=== PATIENT | female | born 2000 ===

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

== ENCOUNTER 2021-05-14 11:18 | Outpatient (CLI) | payer OTHER | END 2021-05-14 11:19 | disposition home or self-care (01) | LOC: TRG 11:18 | DX: O26.893 Other specified pregnancy related conditions, third trimester (principal); Z67.11 Type A blood, Rh negative; Z3A.37 37 weeks gestation of pregnancy | CPT/HCPCS: 86850; 86900; 86901; 96372; J2790 ==

== ENCOUNTER 2021-05-20 08:26 | Outpatient (CLI) | payer OTHER ==
[2021-05-20 14:29] VITALS: BP 106/52
== END 2021-05-20 14:50 | disposition home or self-care (01) ==
LOC: LAB 08:26 → APU 13:48 → LAB 14:50
PROVIDERS: ATTEND Obstetrics & Gynecology
DX: O26.893 Other specified pregnancy related conditions, third trimester (principal); Z3A.32 32 weeks gestation of pregnancy; Z67.11 Type A blood, Rh negative
CPT/HCPCS: 86850; 86900; 86901; 96372; J2790

== ENCOUNTER 2021-07-09 14:23 | Inpatient (IN) | payer OTHER ==
[2021-07-09] MEDS ORDERED: ePHEDrine SULFATE 50 MG/1 ML INJ IV PRN (16:25)
[2021-07-09] MEDS ORDERED: miSOPROStol 200 MCG TAB PR PRN (16:25)
[2021-07-09] MEDS ORDERED: LIDOCAINE (2%) 20 MG/1 ML VIAL 20 ML MDV INFILTRATI ONE (16:25)
[2021-07-09] MEDS ORDERED: MINERAL OIL 30 ML ORAL LIQD PO PRN (16:25)
[2021-07-09] MEDS ORDERED: LOPERAMIDE 2 MG CAP PO PRN (16:25)
[2021-07-09] MEDS ORDERED: TERBUTALINE 1 MG/1 ML INJ SUB-Q PRN (16:25)
[2021-07-09] MEDS ORDERED: OXYTOCIN 10 UNIT/1 ML INJ IM PRN (16:25)
[2021-07-09] MEDS ORDERED: METHYLERGONOVINE MALEATE 0.2 MG/ML VIAL IM PRN (16:25)
[2021-07-09] MEDS ORDERED: CARBOPROST TROMETHAMINE 250 MCG/1 ML INJ IM PRN (16:25)
[2021-07-09] MEDS ORDERED: OXYTOCIN DRIP 30 UNITS/500 ML BAG IV SCH ×2 (17:00)
[2021-07-09 17:02] LABS: Hematocrit 36.9 % (30.3-42.9); Hemoglobin 12.5 gm/dl (10.1-14.3); Mean Corpuscular HGB Conc 34 % (30-34); Mean Corpuscular Volume 94 fl (79-97); Platelet Count 184 K/mm3 (140-440); Red Blood Count 3.94 M/mm3 (3.65-5.03); Red Cell Distribution Width 15.7 % (13.2-15.2)
[2021-07-09] MEDS ORDERED: DINOPROSTONE 10 MG VAG SUPP VG ONE (17:30)
[2021-07-09] MEDS: LACTATED RINGERS 1,000 ML IV SCH ×2 (18:44→23:14)
--- NOTE | 2021-07-09 19:39 | History and Physical Report ---
History of Present Illness Date of examination: 07/09/21 Date of admission: 07/09/21 Chief complaint: Oligo on u/s noted in clinic today History of present illness: at 39.5wks by LMP c/w U/S. care at [facility] and pt had u/s in office today with GIDEON 4 hence admission for induction of labor. Pt admits to movement, denies ctx, LOF or vag bleeding or headache. labs with Rh neg and pt received rhogam in April 2021; Rubella non-immune; HIV, VDRL and HepBsAg neg. Normal 1hrgtt seen. Past History Past Medical History: no pertinent history Past Surgical History: no surgical history Social history: no significant social history - Obstetrical History : 2 Medications and Allergies Allergies Allergy/AdvReac Type Severity Reaction Status Date / Time No Known Allergies Allergy Verified 01/24/20 16:27 Home Medications Medication Instructions Recorded Confirmed Last Taken Type Iron 325 mg PO DAILY 04/02/20 04/02/20 03/29/20 History Vitamin 1 tab PO DAILY 04/02/20 04/02/20 03/29/20 History Active Meds: Active Medications Acetaminophen (Acetaminophen 325 Mg Tab) 650 mg PO Q4H PRN PRN Reason: Pain, Mild (1-3) Carboprost Tromethamine (Carboprost Tromethamine 250 Mcg/1 Ml Inj) 250 mcg IM ONCE PRN PRN Reason: Uterine Bleeding Ephedrine Sulfate (Ephedrine Sulfate 50 Mg/1 Ml Inj) 10 mg IV Q2M PRN PRN Reason: Hypotension Fentanyl (Fentanyl 100 Mcg/2 Ml Inj) 100 mcg IV Q2H PRN PRN Reason: Pain,Severe (7-10) LABOR PAIN Oxytocin/Sodium Chloride (Pitocin/Ns 30 Unit/500ml) 30 units in 500 mls @ 2 mls/hr IV TITR [facility]; Protocol Lactated Ringer's (Lactated Ringers) 1,000 mls @ 125 mls/hr IV DIRECT [facility] Last Admin: 07/09/21 18:44 Dose: 125 mls/hr Documented by: Oxytocin/Sodium Chloride (Pitocin/Ns 30 Unit/500ml) 30 units in 500 mls @ 40 mls/hr IV TITR [facility]; Protocol Lactated Ringer's (Lactated Ringers) 1,000 mls @ 125 mls/hr IV DIRECT [facility] Loperamide HCl (Loperamide 2 Mg Cap) 2 mg PO ONCE PRN PRN Reason: give with Hemabate Methylergonovine Maleate (Methylergonovine Maleate 0.2 Mg/Ml Vial) 0.2 mg IM ONCE PRN PRN Reason: Uterine Bleeding Mineral Oil (Mineral Oil 30 Ml Oral Liqd) 30 ml PO QHS PRN PRN Reason: Constipation Misoprostol (Misoprostol 200 Mcg Tab) 800 mcg FL ONCE PRN PRN Reason: Uterine Bleeding Nalbuphine HCl (Nalbuphine 10 Mg/1 Ml Inj) 10 mg IV Q2H PRN PRN Reason: Pain, Moderate (4-6) Oxytocin (Oxytocin 10 Unit/1 Ml Inj) 10 unit IM ONCE PRN PRN Reason: Uterine Bleeding Terbutaline Sulfate (Terbutaline 1 Mg/1 Ml Inj) 0.25 mg SUB-Q ONCE PRN PRN Reason: Hyperstimulation/Hypertonicity Review of Systems All systems: negative (none) - Vital Signs Vital signs: Vital Signs Pulse BP 96 H 114/62 07/09/21 15:27 07/09/21 15:27 Temp Pulse Resp BP Pulse Ox 98.4 F 94 H 17 118/58 99 07/09/21 19:14 07/09/21 19:28 07/09/21 19:14 07/09/21 19:17 07/09/21 19:28 - Physical Exam Breasts: Positive: deferred Cardiovascular: Regular rate Lungs: Positive: Normal air movement Genitourinary (Female): Positive: normal external genitalia Vagina: Positive: normal moisture Uterus: Positive: enlarged (non-tender gravid) Extremities: Positive: normal - Obstetrical FHR: category 1 Uterine Contraction Monitor Mode: External Uterine Contraction Pattern: Irregular (occasional) Results Result Diagrams: 07/09/21 15:40 Abnormal lab results 07/09/21 Range/Units 15:40 RDW 15.7 H (13.2-15.2) % All other labs normal. Assessment and Plan Term preg with oligohydramnios with reassuring FHR, here for induction of labor 1. Admit to labor and delivery 2. Cervidil ordered by Dr. Lambert with his verbal report and same placed at 18:45pm per nurse report 3. Pt may have epidural when desired and IV pain med prn until that time Plan of care discussed. Pt agrees. All questions encouraged and answered.
[2021-07-09] MEDS ORDERED: ACETAMINOPHEN 325 MG TAB PO PRN (20:00)
[2021-07-09] MEDS ORDERED: LACTATED RINGERS 1,000 ML IV SCH (20:00)
[2021-07-09] MEDS ORDERED: PROMETHAZINE 25 MG TAB PO PRN (20:00)
[2021-07-09] MEDS ORDERED: NalbUPHINE 10 MG/1 ML INJ IV PRN (20:00)
[2021-07-09] MEDS ORDERED: NALOXONE 0.4 MG/1 ML INJ IV PRN (20:00)
[2021-07-10] MEDS: fentaNYL 100 MCG/2 ML INJ IV PRN ×2 (01:05→04:28)
[2021-07-10] MEDS: ACETAMINOPHEN 500 MG TAB PO PRN ×2 (05:14→15:05)
--- NOTE | 2021-07-10 05:14 | Event Note ---
Date: 07/10/21 pt evaluated after nurse told me she has fever 100.2, straight cath urine sent and for analysis and culture. pt without fundal tenderness and wbc normal on admission however with low fluid, I will give broad spectrum coverage with amp and gent and will also give tylenol 1gm every 6hrs prn fever. Cervidil removed with pelvic exam now 80/-2 and will plan on pt getting epidural. FHR cat 1 and ctx every 2mins; Expect vag delivery. Plan of care discussed and pt agreeable. Nurse also aware.
[2021-07-10] MEDS: LACTATED RINGERS 1,000 ML IV SCH (05:30)
[2021-07-10 05:52] LABS: Bilirubin,Urine NEG (Negative); Blood,Urine NEG (Negative); Color,Urine Yellow (Yellow); Mucus,Urine FEW /HPF; Protein,Urine <15 mg/dL mg/dL (Negative); Urobilinogen,Urine < 2.0 mg/dL (<2.0); WBC,Urine < 1.0 /HPF (0.0-6.0)
[2021-07-10] MEDS ORDERED: GENTAMICIN/NS 100 MG/100 ML 100 MG/100 ML BAG IV ONE (06:12)
[2021-07-10] MEDS: AMPICILLIN/NS 2 GM/100 ML 2 GM/100 ML BAG IV SCH ×3 (07:47→20:52)
--- NOTE | 2021-07-10 09:08 | Anesthesia Consultation ---
Anesthesia Consult and Med Hx Date of service: 07/10/21 - Airway Anesthetic Teeth Evaluation: Good ROM Head & Neck: Adequate Mental/Hyoid Distance: Adequate Mallampati Class: Class II Intubation Access Assessment: Probably Good - Pulmonary Exam CTA: Yes - Cardiac Exam Cardiac Exam: RRR - Pre-Operative Health Status ASA Pre-Surgery Classification: ASA2 Proposed Anesthetic Plan: Epidural - Pulmonary Hx Smoking: No Hx Asthma: No Hx Respiratory Symptoms: No SOB: No COPD: No Home Oxygen Therapy: No Hx Pneumonia: No Hx Sleep Apnea: No - Cardiovascular System Hx Hypertension: No Hx Coronary Artery Disease: No Hx Heart Attack/AMI: No Hx Angina: No Hx Percutaneous Transluminal Coronary Angioplasty (PTCA): No Hx Cardia Arrhythmia: No Hx Pacemaker: No Hx Internal Defibrillator: No Hx Valvular Heart Disease: No Hx Heart Murmur: No Hx Peripheral Vascular Disease: No - Central Nervous System Hx Neuromuscular Disorder: No Hx Seizures: No CVA: No Hx Back Pain: Yes Hx Psychiatric Problems: No - Gastrointestinal Hx Ulcer: No Hx Gastroesophageal Reflux Disease: Yes - Endocrine Hx Renal Disease: No Hx End Stage Renal Disease: No Hx Cirrhosis: No Hx Liver Disease: No Hx Insulin Dependent Diabetes: No Hx Non-Insulin Dependent Diabetes: No Hx Thyroid Disease: No Hx Hypothyroidism: No Hx Hyperthyroidism: No - Hematic Hx Anemia: Yes Hx Sickle Cell Disease: No - Other Systems Hx Alcohol Use: No Hx Substance Use: No Hx Cancer: No Hx Obesity: Yes
--- NOTE | 2021-07-10 09:09 | Progress Note ---
Labor Epidural - Labor Epidural Start Time: 08:19 Stop Time: 08:35 Performed by:: NGOZI NELSON Procedure: Patient is requesting a laboring epidural for laboring pain. Patient IDed, H&P reviewed, all questions and concerns were answered, and consent was signed. Timeout was performed at bedside. Patient in sitting position. Sterile prep and drape was performed. [3] ml of 1% lidocaine skin wheal at L[3]- L [4]. 18- gauge Rosalia epidural needle was advanced to loss of resistance with saline technique 7cm. Negative CSF negative blood. Epidural catheter advanced to [10] centimeters. [NEGATIVE] Aspiration [NEGATIVE] test dose. Sterile dressing applied. Patient tolerated procedure.
[2021-07-10] MEDS ORDERED: ePHEDrine SULFATE 50 MG/1 ML INJ IV PRN (09:30)
[2021-07-10] MEDS ORDERED: NALOXONE 2 MG/2 ML INJ IV PRN (09:30)
[2021-07-10] MEDS ORDERED: fentaNYL-BUPIV 2 MCG/ML-0.125% 200 MCG/100 ML BAG EPIDURAL SCH (09:30)
--- NOTE | 2021-07-10 09:50 | Progress Note ---
Assessment and Plan A: IUP@ 39.6wks Afebrile RH neg Rubella NI Oligo-4cm GBS neg P: Continue monitoring Continue abt SROM cl Notify NICU Offer Rubella vaccine pp Anticipate Subjective - Subjective Date of service: 07/10/21 Principal diagnosis: IUP@39.6 wks Patient reports: movement normal, contractions Objective - Vital Signs Vital Signs: Vital Signs - 12hr 07/09/21 07/09/21 07/09/21 21:43 21:48 21:53 Temperature Pulse Rate 79 81 82 Respiratory Rate Blood Pressure O2 Sat by Pulse 98 98 98 Oximetry O2 Sat by Pulse Oximetry [ Anterior Bilateral Throughout] 07/09/21 07/09/21 07/09/21 21:58 22:03 22:08 Temperature Pulse Rate 81 79 69 Respiratory Rate Blood Pressure O2 Sat by Pulse 97 98 99 Oximetry O2 Sat by Pulse Oximetry [ Anterior Bilateral Throughout] 07/09/21 07/09/21 07/09/21 22:13 22:18 22:19 Temperature Pulse Rate 86 72 79 Respiratory Rate Blood Pressure 107/60 O2 Sat by Pulse 99 98 Oximetry O2 Sat by Pulse Oximetry [ Anterior Bilateral Throughout] 07/09/21 07/09/21 07/09/21 22:23 22:28 22:33 Temperature Pulse Rate 76 70 75 Respiratory Rate Blood Pressure O2 Sat by Pulse 98 98 98 Oximetry O2 Sat by Pulse Oximetry [ Anterior Bilateral Throughout] 07/09/21 07/09/21 07/09/21 22:38 22:43 22:48 Temperature Pulse Rate 71 72 83 Respiratory Rate Blood Pressure O2 Sat by Pulse 98 98 99 Oximetry O2 Sat by Pulse Oximetry [ Anterior Bilateral Throughout] 07/09/21 07/09/21 07/09/21 22:56 22:58 23:03 Temperature 98.1 F Pulse Rate 76 76 Respiratory 17 Rate Blood Pressure O2 Sat by Pulse 100 100 Oximetry O2 Sat by Pulse Oximetry [ Anterior Bilateral Throughout] 07/09/21 07/09/21 07/09/21 23:08 23:13 23:18 Temperature Pulse Rate 104 H 78 80 Respiratory Rate Blood Pressure O2 Sat by Pulse 98 99 99 Oximetry O2 Sat by Pulse Oximetry [ Anterior Bilateral Throughout] 07/09/21 07/09/21 07/09/21 23:19 23:23 23:28 Temperature Pulse Rate 78 71 83 Respiratory Rate Blood Pressure 111/55 O2 Sat by Pulse 99 98 Oximetry O2 Sat by Pulse Oximetry [ Anterior Bilateral Throughout] 07/09/21 07/09/21 07/09/21 23:33 23:38 23:43 Temperature Pulse Rate 94 H 85 86 Respiratory Rate Blood Pressure O2 Sat by Pulse 98 99 99 Oximetry O2 Sat by Pulse Oximetry [ Anterior Bilateral Throughout] 07/09/21 07/09/21 07/09/21 23:48 23:53 23:58 Temperature Pulse Rate 107 H 98 H 81 Respiratory Rate Blood Pressure O2 Sat by Pulse 99 98 92 Oximetry O2 Sat by Pulse Oximetry [ Anterior Bilateral Throughout] 07/10/21 07/10/21 07/10/21 00:35 01:18 02:19 Temperature Pulse Rate 95 H 86 93 H Respiratory Rate Blood Pressure 106/50 101/52 93/53 O2 Sat by Pulse Oximetry O2 Sat by Pulse Oximetry [ Anterior Bilateral Throughout] 07/10/21 07/10/21 07/10/21 03:19 04:10 05:18 Temperature 100.2 F H Pulse Rate 93 H 93 H Respiratory 18 Rate Blood Pressure 99/50 112/59 O2 Sat by Pulse Oximetry O2 Sat by Pulse Oximetry [ Anterior Bilateral Throughout] 07/10/21 07/10/21 07/10/21 06:18 06:38 07:18 Temperature 100.3 F H Pulse Rate 90 77 Respiratory 18 Rate Blood Pressure 107/55 97/51 O2 Sat by Pulse Oximetry O2 Sat by Pulse Oximetry [ Anterior Bilateral Throughout] 07/10/21 07/10/21 07/10/21 07:43 07:48 07:53 Temperature 99.8 F H Pulse Rate 29 L 101 H Respiratory Rate Blood Pressure O2 Sat by Pulse 87 99 Oximetry O2 Sat by Pulse Oximetry [ Anterior Bilateral Throughout] 07/10/21 07/10/21 07/10/21 07:58 07:59 08:03 Temperature Pulse Rate 97 H 95 H Respiratory Rate Blood Pressure O2 Sat by Pulse 99 98 Oximetry O2 Sat by Pulse 99 Oximetry [ Anterior Bilateral Throughout] 07/10/21 07/10/21 07/10/21 08:08 08:13 08:17 Temperature Pulse Rate 77 93 H 84 Respiratory Rate Blood Pressure 127/60 O2 Sat by Pulse 98 99 Oximetry O2 Sat by Pulse Oximetry [ Anterior Bilateral Throughout] 07/10/21 07/10/21 07/10/21 08:18 08:20 08:23 Temperature Pulse Rate 94 H 93 H 76 Respiratory Rate Blood Pressure 121/59 117/56 O2 Sat by Pulse 98 98 Oximetry O2 Sat by Pulse Oximetry [ Anterior Bilateral Throughout] 07/10/21 07/10/21 07/10/21 08:26 08:28 08:29 Temperature Pulse Rate 86 98 H 73 Respiratory Rate Blood Pressure 136/62 124/60 O2 Sat by Pulse 98 Oximetry O2 Sat by Pulse Oximetry [ Anterior Bilateral Throughout] 07/10/21 07/10/21 07/10/21 08:32 08:33 08:35 Temperature Pulse Rate 88 81 86 Respiratory Rate Blood Pressure 128/68 131/58 O2 Sat by Pulse 99 Oximetry O2 Sat by Pulse Oximetry [ Anterior Bilateral Throughout] 07/10/21 07/10/21 07/10/21 08:38 08:42 08:43 Temperature Pulse Rate 95 H 72 74 Respiratory Rate Blood Pressure 126/63 115/57 O2 Sat by Pulse 98 99 Oximetry O2 Sat by Pulse Oximetry [ Anterior Bilateral Throughout] 07/10/21 07/10/21 07/10/21 08:44 08:47 08:48 Temperature Pulse Rate 88 80 81 Respiratory Rate Blood Pressure 116/57 115/55 O2 Sat by Pulse 98 Oximetry O2 Sat by Pulse Oximetry [ Anterior Bilateral Throughout] 07/10/21 07/10/21 07/10/21 08:50 08:53 08:58 Temperature Pulse Rate 72 76 71 Respiratory Rate Blood Pressure 116/58 103/55 O2 Sat by Pulse 99 97 Oximetry O2 Sat by Pulse Oximetry [ Anterior Bilateral Throughout] 07/10/21 07/10/21 07/10/21 09:03 09:08 09:13 Temperature Pulse Rate 74 71 72 Respiratory Rate Blood Pressure 107/55 O2 Sat by Pulse 99 98 97 Oximetry O2 Sat by Pulse Oximetry [ Anterior Bilateral Throughout] 07/10/21 07/10/21 07/10/21 09:18 09:23 09:25 Temperature Pulse Rate 72 71 73 Respiratory Rate Blood Pressure 104/57 O2 Sat by Pulse 98 97 Oximetry O2 Sat by Pulse Oximetry [ Anterior Bilateral Throughout] 07/10/21 07/10/21 07/10/21 09:28 09:33 09:38 Temperature Pulse Rate 70 72 73 Respiratory Rate Blood Pressure O2 Sat by Pulse 99 98 98 Oximetry O2 Sat by Pulse Oximetry [ Anterior Bilateral Throughout] - Exam Breasts: deferred Abdomen: Present: normal appearance, soft, normal bowel sounds Vulva: both: normal Uterus: Present: normal FHR: auscultation normal, category 1 Uterine Contraction Monitor Mode: External Cervical Dilatation: 7 Cervical Effacement Percentage: 80 station: -2 Uterine Contraction Pattern: Regular Uterine Tone Measurement Phase: Resting Uterine Contraction Intensity: Strong/Firm Extremities: normal - Labs Labs: Abnormal Labs 07/09/21 07/10/21 15:40 07:41 RDW 15.7 H Creatinine 0.3 L Laboratory Results - last 24 hr 07/09/21 07/09/21 07/09/21 15:40 15:40 22:45 WBC 8.7 RBC 3.94 Hgb 12.5 Hct 36.9 MCV 94 MCH 32 MCHC 34 RDW 15.7 H Plt Count 184 Creatinine Estimated GFR Urine Color Urine Turbidity Urine pH Ur Specific [place] Urine Protein Urine Glucose (UA) Urine Ketones Urine Blood Urine Nitrite Urine Bilirubin Urine Urobilinogen Ur Leukocyte Esterase Urine WBC (Auto) Urine RBC (Auto) U Epithel Cells (Auto) Urine Mucus Syphilis IgG Antibody Nonreactive Blood Type A NEGATIVE Antibody Screen Negative 07/10/21 07/10/21 04:21 07:41 WBC RBC Hgb Hct MCV MCH MCHC RDW Plt Count Creatinine 0.3 L Estimated GFR > 60 Urine Color Yellow Urine Turbidity Clear Urine pH 7.0 Ur Specific [place] 1.014 Urine Protein <15 mg/dl Urine Glucose (UA) Neg Urine Ketones Neg Urine Blood Neg Urine Nitrite Neg Urine Bilirubin Neg Urine Urobilinogen < 2.0 Ur Leukocyte Esterase Neg Urine WBC (Auto) < 1.0 Urine RBC (Auto) 1.0 U Epithel Cells (Auto) 1.0 Urine Mucus Few Syphilis IgG Antibody Blood Type Antibody Screen
--- NOTE | 2021-07-10 15:28 | Procedure Note ---
OB Delivery Note - Delivery Date of Delivery: 07/10/21 Surgeon: TRISTAN FLOOD Estimated blood loss: 100cc - Vaginal Delivery presentation: vertex Delivery position: OP Intrapartum events: febrile- temp >100.3, other(please specify) (Oligo-GIDEON 4) Delivery induction: cervidil Delivery augmentation: pitocin Delivery monitor: external FHT, external uterine, internal FHT Route of delivery: Delivery placenta: spontaneous Delivery cord: 3 umbilical vessels Episiotomy: none Delivery laceration: 1st degree, vaginal side wall Delivery repair: vicryl Anesthesia: epidural Delivery comments: of a viable female infant in OP position. Spontaneous delivery of head and shoulders. Infant was immediately placed on mom's chest for skin to skin bonding. Delayed cord clamping while NICU dried and stimulated baby. Cord was clamped x 2 and cut. Baby was taken to warmer by NICU nurse for an initial asses 8/9. Cord blood was obtained. Spontaneous delivery of an intact placenta with 3CV. FF@U2 with fundal massage and IV Pitocin. An exploration of tears revealed a 1st degree perineal tear and a left vag side wall tear which was repaired with a 3-[address] 1. Pt tolerated repair well. Placenta was sent to lab r/t maternal fever. EBL 100cc. FW 3380 Gms. Mom and baby were left in stable condition with nurse. - A at 1 minute: 8 at 5 minutes: 9 Gender: Female (FW 3380 Gms)
[2021-07-10] MEDS ORDERED: MAGNESIUM HYDROXIDE (MOM) ORAL LIQD UDC PO PRN (15:39)
[2021-07-10] MEDS ORDERED: PROMETHAZINE 25 MG TAB PO PRN (15:39)
[2021-07-10] MEDS ORDERED: PROMETHAZINE 25 MG RECT SUPP PR PRN (15:39)
[2021-07-10] MEDS ORDERED: oxyCODONE /ACETAMINOPHEN 5-325MG TAB PO PRN (15:39)
[2021-07-10] MEDS ORDERED: diphenhydrAMINE 25 MG CAP PO PRN (15:39)
[2021-07-10] MEDS ORDERED: LANOLIN/ZINC/DIMETHICONE (LANSINOH) 7 GM TP PRN (15:39)
[2021-07-10] MEDS ORDERED: ONDANSETRON 4 MG/2 ML INJ IV PRN (15:39)
[2021-07-10] MEDS: GENTAMICIN/NS 80 MG/100 ML 100 ML IV SCH ×2 (15:49→23:48)
[2021-07-10] MEDS: IBUPROFEN 600 MG TAB PO SCH ×2 (16:20→23:43)
[2021-07-10] MEDS ORDERED: IBUPROFEN 600 MG TAB PO ONE (16:25)
[2021-07-10] MEDS: WITCH HAZEL/ GLYCERIN PAD TP PRN (19:43)
--- NOTE | 2021-07-10 23:56 | Post Anesthesia Evaluation ---
- Post Anesthesia Evaluation Patient Participated: Yes Airway Patent: Yes Stable Respiratory Function: Yes Nausea/Vomiting: No Temp > 96.8F: Yes Pain Manageable: Yes Adequeate Hydration: Yes Anesthesia Complications: No Block Receding Appropriately: Yes Patient on Ventilator: No
[2021-07-11] MEDS: AMPICILLIN/NS 2 GM/100 ML 2 GM/100 ML BAG IV SCH ×2 (02:45→09:00)
[2021-07-11 05:19] LABS: Hematocrit 34.7 % (30.3-42.9); Hemoglobin 11.8 gm/dl (10.1-14.3)
[2021-07-11] MEDS: IBUPROFEN 600 MG TAB PO SCH ×3 (06:04→18:10)
[2021-07-11] MEDS: GENTAMICIN/NS 80 MG/100 ML 100 ML IV SCH (08:10)
[2021-07-11] MEDS: ACETAMINOPHEN 500 MG TAB PO PRN (10:05)
--- NOTE | 2021-07-11 12:20 | Progress Note ---
Assessment and Plan A: day 1 S/P . P: Continue routine care. Anticipate discharge home tomorrow if patient continues to do well. Subjective - Subjective Date of service: 07/11/21 Principal diagnosis: day 1 S/P Patient reports: appetite normal, voiding normally, pain well controlled, flatus, ambulating normally, no dizzy ambulation, no nauseated [place]: doing well Objective - Vital Signs Latest vital signs: Vital Signs Temp Pulse Resp BP BP Pulse Ox Pulse Ox 07/11/21 08:49 98 07/11/21 07:32 97.6 F 64 16 110/51 98 07/11/21 06:04 20 07/11/21 04:00 98.6 F 77 16 105/78 07/11/21 00:18 98.0 F 65 18 99/62 97 07/10/21 23:43 20 07/10/21 20:20 98 07/10/21 20:00 98.6 F 74 16 102/70 07/10/21 17:30 98.4 F 68 16 102/49 95 95 07/10/21 17:23 98.4 F 69 16 102/49 96 07/10/21 16:20 86 98 07/10/21 16:18 69 108/57 07/10/21 16:15 80 97 07/10/21 16:13 75 107/58 07/10/21 16:10 90 97 07/10/21 16:05 69 98 07/10/21 16:02 86 111/53 07/10/21 16:00 74 97 07/10/21 15:59 75 114/56 07/10/21 15:54 75 98 07/10/21 15:49 71 98 07/10/21 15:44 73 98 07/10/21 15:39 68 99 07/10/21 15:34 73 99 07/10/21 15:29 63 99 07/10/21 15:28 68 110/57 07/10/21 15:24 77 98 07/10/21 15:19 71 99 07/10/21 15:17 60 109/56 07/10/21 15:14 89 98 07/10/21 15:13 90 120/52 07/10/21 15:09 83 99 07/10/21 15:04 80 99 07/10/21 15:02 85 103/58 08/19/21 14:59 100.7 F H 83 99 07/10/21 14:57 86 99/58 07/10/21 14:54 91 H 98 07/10/21 14:49 108 H 97 07/10/21 14:44 103 H 97 07/10/21 14:42 82 L 07/10/21 14:39 101 H 118/63 97 07/10/21 14:33 82 98 07/10/21 14:28 69 94 07/10/21 14:23 77 98 07/10/21 14:18 73 97 07/10/21 14:13 93 H 99 07/10/21 14:08 74 98 07/10/21 14:03 86 98 07/10/21 13:58 126 H 100 07/10/21 13:53 107 H 111/56 99 07/10/21 13:48 73 100 07/10/21 13:43 75 99 07/10/21 13:38 98.8 F 84 106/53 98 07/10/21 13:33 88 100 07/10/21 13:28 95 H 98 07/10/21 13:24 85 115/58 07/10/21 13:23 71 99 07/10/21 13:22 103 H 84 07/10/21 13:18 64 98 07/10/21 13:13 69 97 07/10/21 13:08 68 91/51 98 07/10/21 13:03 63 98 07/10/21 12:58 98 H 99 07/10/21 12:55 93 H 117/56 07/10/21 12:53 71 100 07/10/21 12:48 70 98 07/10/21 12:43 71 97 07/10/21 12:40 67 107/56 07/10/21 12:38 83 97 07/10/21 12:33 70 97 07/10/21 12:28 72 98 07/10/21 12:23 78 99 Intake and Output 07/10/21 07/11/21 07/11/21 23:59 07:59 15:59 Intake Total 790 400 240 Output Total 200 2000 Balance 590 -1600 240 Intake: IV 250 200 AMPICILLIN/NS 2 GM/100 ML 100 100 2 gm In 100 ml @ 100 mls /hr IV Q6H [facility] Rx#: [id number] CLEOCIN 900 MG/50 mL 900 50 mg In 50 ml @ 100 mls/hr IV Q8H [facility] Rx#:[id number] Gentamicin/Ns 80 mg/100 100 100 ml 100 ml @ 200 mls/hr IV Q8H [facility] Rx#:[id number] Oral 240 200 240 Intake, Free Water 300 Output: Urine 200 2000 Void 200 2000 Other: Total, Intake Amount 240 200 240 Total, Output Amount 200 600 # Voids Void 1 1 Estimated Blood Loss 153 - Exam Abdomen: Present: normal appearance, soft. Absent: distention, tenderness, guarding, rigidity Uterus: Present: normal, firm, fundal height below umbilicus. Absent: bogginess, tenderness Extremities: Present: edema (bilateral pedal edema). Absent: tenderness
[2021-07-12] MEDS: IBUPROFEN 600 MG TAB PO SCH ×2 (00:16→06:11)
--- NOTE | 2021-07-12 07:12 | Progress Note ---
Assessment and Plan A: day 2 S/P . P: Discharge patient home today. Discussed with patient discharge instructions and warning signs. Advised patient to continue taking her vitamin at home. Advised patient to avoid intercourse, lifting, housework, driving, tub baths (patient may take showers). Advised patient to follow up at [facility] office in 4-6 weeks. Patient voiced understanding of all instructions. Subjective - Subjective Date of service: 07/12/21 Principal diagnosis: day 2 S/P Interval history: Patient desires discharge home today. Patient reports: appetite normal, voiding normally, pain well controlled, flatus, ambulating normally, no dizzy ambulation, no nauseated : doing well Objective - Vital Signs Latest vital signs: Vital Signs Temp Pulse Resp BP Pulse Ox Pulse Ox 07/12/21 00:31 97.9 F 65 18 117/56 98 07/11/21 21:30 100 07/11/21 16:55 97.7 F 64 18 108/48 98 07/11/21 11:47 97.6 F 65 16 117/71 97 07/11/21 08:49 98 07/11/21 07:32 97.6 F 64 16 110/51 98 Intake and Output 07/11/21 07/11/21 07/12/21 15:59 23:59 07:59 Intake Total 240 240 120 Balance 240 240 120 Intake: Oral 240 240 120 Other: Total, Intake Amount 240 120 120 # Voids Void 1 1 1 - Exam Cardiovascular: Present: Regular rate Lungs: Present: Clear to auscultation Abdomen: Present: normal appearance, soft, normal bowel sounds. Absent: distention, tenderness, guarding, rigidity Uterus: Present: normal, firm, fundal height below umbilicus. Absent: bogginess, tenderness Extremities: Present: edema (mild pedal edema bilaterally). Absent: tenderness
--- NOTE | 2021-07-12 07:15 | Discharge Summary ---
Providers - Providers Date of Admission: 07/09/21 19:28 Date of discharge: 07/12/21 Attending physician: UDAY RICE Primary care physician: UDAY RICE Hospitalization Reason for admission: induction of labor Delivery: Episiotomy: none Laceration: 1st degree Other procedures: none Discharge diagnosis: IUP at term delivered Ewen baby: female Pertinent studies: Labs Hospital course: Stable hospital course. Condition at discharge: Good Disposition: 01 HOME / SELF CARE / HOMELESS - Discharge Diagnoses (1) Term delivered Status: Acute Plan - Provider Discharge Summary Activity: routine, no sex for 6 weeks, no heavy lifting 4 weeks, no strenuous exercise Diet: routine Instructions: routine Additional instructions: Continue taking your vitamin daily at home. Call your doctor immediately for: * Fever > 100.5 * Heavy vaginal bleeding ( >1 pad per hour) * Severe persistent headache * Shortness of breath * Reddened, hot, painful area to leg or breast - Follow up plan Follow up: UDAY RICE MD [Primary Care Provider] - 6 Weeks
[2021-07-12 09:21] VITALS: BP 106/61
[2021-07-12] MEDS: WITCH HAZEL/ GLYCERIN PAD TP PRN (14:00)
== END 2021-07-12 14:40 | disposition home or self-care (01) | DRG 775 ==
LOC: TRG 14:23 → LD 14:24 → TRG 19:28 → OB 07-10 17:20
PROVIDERS: ADMIT Obstetrics & Gynecology; ATTEND Obstetrics & Gynecology
PROC: 10E0XZZ Delivery of Products of Conception, External Approach (ICD-10-PCS; 2021-07-10)
PROC: 3E0P7VZ Introduction of Hormone into Female Reproductive, Via Natural or Artificial Opening (ICD-10-PCS; 2021-07-10)
PROC: 0HQ9XZZ Repair Perineum Skin, External Approach (ICD-10-PCS; 2021-07-10)
PROC: 3E0R3BZ Introduction of Anesthetic Agent into Spinal Canal, Percutaneous Approach (ICD-10-PCS; 2021-07-10)
PROC: 00HU33Z Insertion of Infusion Device into Spinal Canal, Percutaneous Approach (ICD-10-PCS; 2021-07-10)
PROC: 3E0234Z Introduction of Serum, Toxoid and Vaccine into Muscle, Percutaneous Approach (ICD-10-PCS; principal; 2021-07-11)
DX: O41.03X0 Oligohydramnios, third trimester, not applicable or unspecified (principal); Z20.828 Contact with and (suspected) exposure to other viral communicable diseases; O99.62 Diseases of the digestive system complicating childbirth; O99.02 Anemia complicating childbirth; O70.0 First degree perineal laceration during delivery; D64.9 Anemia, unspecified; O99.214 Obesity complicating childbirth; E66.9 Obesity, unspecified; K21.9 Gastro-esophageal reflux disease without esophagitis; Z37.0 Single live birth; Z3A.39 39 weeks gestation of pregnancy
CPT/HCPCS: 36415; 59200; 81001; 82565; 85014; 85018; 85027; 85461; 86592; 86850; 86900; 86901; 87086; 88307; 96360; 96361; 96365; 96366; 96374; 99211; G0378; G0463; J0290; J1580; J2590; J2790; J3010; J7120; U0003